=== PATIENT | female | born 1965 | race Caucasian/White ===

== ENCOUNTER 2024-06-07 15:27 | Emergency (ER) | payer OTHER ==
[~2024-06-07] VITALS: Ht 177.8 cm; Wt 81.6 kg
[2024-06-07] MEDS ORDERED: KETOROLAC TROMETHAMINE 15 MG/ML VIAL ONE (17:31)
[2024-06-07] MEDS: KETOROLAC TROMETHAMINE 15 MG/ML VIAL IV ONE (17:39)
[2024-06-07] MEDS ORDERED: MORPHINE SULFATE INJ 4 MG/ML DISP.SYRIN ONE (18:25)
[2024-06-07] MEDS ORDERED: ONDANSETRON HCL/PF 4 MG/2 ML VIAL ONE (18:25)
[2024-06-07] MEDS: ONDANSETRON HCL/PF - ER 4 MG/2 ML VIAL IV ONE (18:30)
[2024-06-07] MEDS: MORPHINE SULFATE INJ 2 MG/ML DISP.SYRIN IV ONE (18:30)
[2024-06-07] MEDS ORDERED: PROPOFOL 20 ML IV ONE (19:19)
[2024-06-07] MEDS: PROPOFOL 200 MG/20 ML VIAL IV ONE (20:03)
[2024-06-07] MEDS ORDERED: OXYC5CAP18 PO (21:29)
[2024-06-07] MEDS ORDERED: IBUP-1957 PO (21:29)
[2024-06-07] MEDS ORDERED: ACET-2605 PO (21:29)
[2024-06-07 22:05] VITALS: BP 128/70; TEMP 98; O2SAT 100
== END 2024-06-07 22:06 | disposition home or self-care (01) ==
LOC: ER 15:50
DX: S93.05XA Dislocation of left ankle joint, initial encounter (principal); S82.832A Other fracture of upper and lower end of left fibula, initial encounter for closed fracture; S82.55XA Nondisplaced fracture of medial malleolus of left tibia, initial encounter for closed fracture; I10 Essential (primary) hypertension; E03.9 Hypothyroidism, unspecified; W11.XXXA Fall on and from ladder, initial encounter; Y93.H2 Activity, gardening and landscaping; Y92.89 Other specified places as the place of occurrence of the external cause; Y99.8 Other external cause status
CPT/HCPCS: 27788; 73590; 73610; 73630; 96374; 96375; 99152; 99285; J1885; J2270; J2405; J2704; G0500